=== PATIENT | female | born 1995 ===

== ENCOUNTER 2018-03-29 07:16 | Emergency (ER) | payer BC ==
--- NOTE | 2018-03-29 07:43 | UC ---
Throat Pain/Nasal Frandy HPI - HPI Summary HPI Summary: 22-year-old male comes to clinic today with a chief complaint of runny nose sinus pressure and fevers. Symptoms started 2 weeks ago. Rhinorrhea was white at that time now it's turned to yellow green. Patient is been having fevers on and off this morning she reported a fever of 102. She took ibuprofen which helped with the fever. She's been taking some [id number] medicines which helped some but then overall she's worsening. She has a lot of sinus pressure in the frontal sinuses. No chest congestion minimal sore throat. - History of Current Complaint Chief Complaint: UCRespiratory Stated Complaint: SINUS COMPLAINT Time Seen by Provider: 03/29/18 07:32 Hx Last Menstrual Period: 03/19/18 Pain Intensity: 4 - Allergies/Home Medications Allergies/Adverse Reactions: Allergies Allergy/AdvReac Type Severity Reaction Status Date / Time No Known Allergies Allergy Verified 03/29/18 07:29 Home Medications: Home Medications Acetaminophen [Non-Aspirin] 650 mg PO ONCE PRN 03/29/18 [History Confirmed 03/29] Dm/Acetaminophen/Doxylamine [Eql Nighttime Cold & Flu 15-6.25-325 mg] 1 cap PO ONCE PRN 03/29/18 [History Confirmed 03/29/18] Tri-Estarylla (Nf) [Tri-Estarylla] 1 tab PO DAILY 03/29/18 [History Confirmed ] guaiFENesin [Mucinex] 1,200 mg PO ONCE PRN 03/29/18 [History Confirmed 03/29/18] PMH/Surg Hx/FS Hx/Imm Hx Previously Healthy: Yes - Surgical History Surgical History: None - Family History Known Family History: Positive: Diabetes - Social History Alcohol Use: Occasionally Substance Use Type: None Smoking Status (MU): Never Smoked Tobacco Review of Systems Constitutional: Fever Skin: Negative Eyes: Negative ENT: Sore Throat, Ear Ache, Nasal Discharge, Sinus Congestion, Sinus Pain/ Tenderness Respiratory: Negative Cardiovascular: Negative Gastrointestinal: Negative Motor: Negative Neurovascular: Negative Musculoskeletal: Negative Neurological: Negative Psychological: Negative Is Patient Immunocompromised?: No All Other Systems Reviewed And Are Negative: Yes Physical Exam Triage Information Reviewed: Yes Appearance: No Pain Distress, Well-Nourished, Ill-Appearing - MILD Vital Signs: Initial Vital Signs Temp 97.7 F 03/29/18 07:23 Pulse 90 03/29/18 07:23 Resp 18 03/29/18 07:23 BP 132/82 03/29/18 07:23 Pulse Ox 98 03/29/18 07:23 Vital Signs Reviewed: Yes Eye Exam: Normal Eyes: Positive: Conjunctiva Clear ENT: Positive: Pharyngeal erythema, Nasal congestion, Nasal drainage, TM dull Neck exam: Normal Neck: Positive: Supple Respiratory Exam: Normal Respiratory: Positive: Lungs clear, Normal breath sounds, No respiratory distress Cardiovascular Exam: Normal Cardiovascular: Positive: RRR Musculoskeletal Exam: Normal Musculoskeletal: Positive: Strength Intact, ROM Intact Neurological Exam: Normal Neurological: Positive: Alert, Muscle Tone Normal Psychological Exam: Normal Psychological: Positive: Age Appropriate Behavior Skin Exam: Normal Throat Pain/Nasal Course/Dx - Differential Dx/Diagnosis Provider Diagnoses: SINUSITIS Discharge - Sign-Out/Discharge Documenting (check all that apply): Patient Departure All imaging exams completed and their final reports reviewed: No Studies - Discharge Plan Condition: Stable Disposition: HOME Prescriptions: Amoxicillin/Clavulanate TAB* [Augmentin TAB 875*] 875 mg PO BID #20 tab Patient Education Materials: Sinusitis (ED) Referrals: [facility] [place] PHYSICIAN REFERRAL [Outside] Additional Instructions: FOLLOW UP WITH YOUR DOCTOR IF NOT COMPLETELY IMPROVED. GET RECHECKED FOR ANY WORSENING OF YOUR CONDITION OR QUESTIONS OR CONCERNS. - Billing Disposition and Condition Condition: STABLE Disposition: Home
== END 2018-03-29 07:45 | disposition home or self-care (01) ==
LOC: UCEAST 07:16
DX: J32.9 Chronic sinusitis, unspecified (principal)
CPT/HCPCS: 99202; G0463

== ENCOUNTER 2018-05-28 12:08 | Emergency (ER) | payer BC ==
[2018-05-28 12:29] VITALS: BP 155/109
--- NOTE | 2018-05-28 12:41 | UC ---
Throat Pain/Nasal Frandy HPI - HPI Summary HPI Summary: 22-year-old female comes to clinic today with chief complaint of upper respiratory tract infection symptoms for 2 weeks. She's had some sinus pressure and rhinorrhea. The rhinorrhea has turned yellow and green. She started with fevers last 2 days. No cough or chest congestion. She also has a sore throat. [id number] medications help with the symptoms but then the symptoms return. - History of Current Complaint Chief Complaint: UCGeneralIllness Stated Complaint: CONGESTION, SORE THROAT Time Seen by Provider: 05/28/18 12:33 Hx Last Menstrual Period: 05/16/18 Pain Intensity: 2 - Allergies/Home Medications Allergies/Adverse Reactions: Allergies Allergy/AdvReac Type Severity Reaction Status Date / Time No Known Allergies Allergy Verified 05/28/18 12:29 PMH/Surg Hx/FS Hx/Imm Hx Previously Healthy: Yes - Surgical History Surgical History: None Surgery Procedure, Year, and Place: denies - Family History Known Family History: Positive: Diabetes - Social History Alcohol Use: Occasionally Substance Use Type: None Smoking Status (MU): Never Smoked Tobacco Review of Systems All Other Systems Reviewed And Are Negative: Yes Constitutional: Positive: Fever Skin: Positive: Negative Eyes: Positive: Negative ENT: Positive: Sore Throat, Nasal Discharge, Sinus Congestion, Sinus Pain/ Tenderness Respiratory: Positive: Negative Cardiovascular: Positive: Negative Gastrointestinal: Positive: Negative Motor: Positive: Negative Neurovascular: Positive: Negative Musculoskeletal: Positive: Negative Neurological: Positive: Negative Psychological: Positive: Negative Is Patient Immunocompromised?: No Physical Exam Triage Information Reviewed: Yes Appearance: No Pain Distress, Well-Nourished, Ill-Appearing - MILD Vital Signs: Initial Vital Signs Temp 98.4 F 05/28/18 12:24 Pulse 113 05/28/18 12:24 Resp 20 05/28/18 12:24 BP 155/109 05/28/18 12:24 Pulse Ox 100 05/28/18 12:24 Vital Signs Reviewed: Yes Eye Exam: Normal Eyes: Positive: Conjunctiva Clear ENT: Positive: Pharyngeal erythema, Nasal congestion, Nasal drainage, TMs normal Neck exam: Normal Neck: Positive: Supple Respiratory: Positive: Lungs clear, Normal breath sounds, No respiratory distress Cardiovascular: Positive: RRR Musculoskeletal Exam: Normal Musculoskeletal: Positive: Strength Intact, ROM Intact Neurological Exam: Normal Neurological: Positive: Alert, Muscle Tone Normal Psychological Exam: Normal Psychological: Positive: Age Appropriate Behavior Skin Exam: Normal Throat Pain/Nasal Course/Dx - Differential Dx/Diagnosis Provider Diagnosis: Sinusitis Discharge - Sign-Out/Discharge Documenting (check all that apply): Patient Departure All imaging exams completed and their final reports reviewed: No Studies - Discharge Plan Condition: Stable Disposition: HOME Prescriptions: Amoxicillin/Clavulanate TAB* [Augmentin TAB 875*] 875 mg PO BID #20 tab Fluconazole 150 MG TAB* [Diflucan 150 MG TAB*] 150 mg PO ONCE #2 tablet Patient Education Materials: Sinusitis (ED) Referrals: [facility] [place] [facility]IAN REFERRAL [Outside] Additional Instructions: FOLLOW UP WITH YOUR DOCTOR IF NOT COMPLETELY IMPROVED. GET RECHECKED FOR ANY WORSENING OF YOUR CONDITION OR QUESTIONS OR CONCERNS. - Billing Disposition and Condition Condition: STABLE Disposition: Home
== END 2018-05-28 12:48 | disposition home or self-care (01) ==
LOC: UCEAST 12:08
DX: J32.9 Chronic sinusitis, unspecified (principal); J02.9 Acute pharyngitis, unspecified
CPT/HCPCS: 99212; G0463